=== PATIENT | female | born 1975 | race Caucasian/White ===

== ENCOUNTER 2020-10-18 18:05 | Emergency (ER) | payer BC ==
[~2020-10-18] VITALS: Ht 152.4 cm; Wt 88.6 kg
--- NOTE | 2020-10-18 18:30 | PHYS DOC ---
Past History Past Surgical History: General Adult HPI: HPI: ".... I got this Rt. lower abdomen pain... " Patient is a 45 year old female who presents with above hx and complaints of Rt.lower quadrant. No history of bad food intake. Reportedly normal stools. No recent travel. No significant ill contacts. No history immunosuppression. Patient has previous abdomen surgeries . Follows with Marley Graves. P atient has not eaten for almost entire day. Review of Systems: Review of Systems: Constitutional: Denies fever or chills Eyes: Denies change in visual acuity HENT: Denies nasal congestion or sore throat Respiratory: Denies cough or shortness of breath Cardiovascular: Denies chest pain or edema GI: Complaints of right lower abdominal pain, nausea,. Denies vomiting, bloody stools or diarrhea : Denies dysuria Musculoskeletal: Denies back pain or joint pain Integument: Denies rash Neurologic: Denies headache, focal weakness or sensory changes Endocrine: Denies polyuria or polydipsia Lymphatic: Denies swollen glands Psychiatric: Denies depression or anxiety Family History: Family History: Noncontributory to presentation. Current Medications: Current Meds: See nursing Allergies: Allergies: Penicillin codeine Physical Exam: PE: Constitutional: Moderate acute distress, non-toxic appearance. [] HENT: Normocephalic, atraumatic, bilateral external ears normal, oropharynx dry, no oral exudates, nose normal. [] Eyes: PERRLA, EOMI, conjunctiva normal, no discharge. [] Neck: Normal range of motion, no tenderness, supple, no stridor. [] Cardiovascular:Heart rate regular rhythm, no murmur [] Lungs & Thorax: Bilateral breath sounds apex on auscultation [] Abdomen: Bowel sounds normal, soft, right lower quadrant tenderness, no masses, no pulsatile masses. [] Old surgical scar. Rebound right lower quadrant. Skin: Warm, dry, no erythema, no rash. [] Back: No tenderness, no CVA tenderness. [] Extremities: No tenderness, no cyanosis, no clubbing, ROM intact, no edema. Pt. Heel tap Rt. true psoas sign.. No cording. Neurologic: Alert and oriented X 3, normal motor function, normal sensory function, no focal deficits noted. [] Psychologic: Affect anxious, judgement normal, mood normal. [] EKG: EKG: [] Radiology/Procedures: Radiology/Procedures: [][address] [address] IMAGING REPORT Signed PATIENT: WILVER PETERSON ACCOUNT: [id number] : 1975 LOCATION: ER AGE: 45 SEX: F EXAM STATUS: REG ER ORD. PHYSICIAN: GREGORY MESSINA MD REASON: OMNI 300,75ML IV.OMNI 240,30ML PO.Abdominal pain PROCEDURE: CT ABD PELV W/ORAL&IV CONTRAST EXAM: CT Abdomen and Pelvis with IV contrast CLINICAL HISTORY: Reason: OMNI 300,75ML IV.OMNI 240,30ML PO. Abdominal pain COMPARISON: none TECHNIQUE: Helical CT of the abdomen and pelvis was performed following the ad ministration of intravenous contrast. Axial, coronal and sagittal reformatted images were generated. PQRS compliance statement - One or more of the following individualized dose reduction techniques were utilized for this study: 1. Automated exposure control 2. Adjustment of the mA and/or kV according to patient size 3. Use of iterative reconstruction technique FINDINGS: Lower Chest: Patchy ground glass opacities lung bases likely atelectasis. Abdomen and Pelvis: Hepatic hypoattenuation, likely fatty liver. Region of focal fatty sparing in the gallbladder fossa. Gallbladder is normal. No biliary duct dilatation. Pancreas and spleen and adrenal glands are unremarkable. Symmetric nephrograms. No focal renal lesion. No hydronephrosis. No hydroureter. Moderately distended bladder is unremarkable. Appendix is thickened with periappendiceal infiltration, measuring 1.4 cm in thickness. Uterus and adnexa are unremarkable. No abdominal or pelvic ascites. No abdominal or pelvic lymphadenopathy. Aorta is normal in caliber. Bones: No aggressive osseous lesion is seen. Degenerative changes of the spine are seen. Mild disc height loss at L4-5 and L5-S1. IMPRESSION: 1. Acute appendicitis without evidence for perforation or associated loculated fluid collection. 2. Hepatic hypoattenuation, likely fatty liver. Findings discussed with Dr. Messina at 10/18/2020 10:42 PM. FOR INTERNAL CODING PURPOSES RESULT CODE: (C) Electronically signed by: Giovanni Grant MD (10/18/2020 10:43 PM) [facility] DICTATED AND SIGNED BY: GIOVANNI GRANT MD DATE: 10/18/202238 CC: GREGORY MESSINA MD; MARLEY GRAVES APRN ~MTH0 0 Heart Score: C/O Chest Pain: N/A Risk Factors: Risk Factors: DM, Current or recent (<one month) smoker, HTN, HLP, family history of CAD, obesity. Risk Scores: Score 0 - 3: 2.5% MACE over next 6 weeks - Discharge Home Score 4 - 6: 20.3% MACE over next 6 weeks - Admit for Clinical Observation Score 7 - 10: 72.7% MACE over next 6 weeks - Early Invasive Strategies Course & Med Decision Making: Course & Med Decision Making Pertinent Labs and Imaging studies reviewed. (See chart for details) Discussed presentation, testing and treatment plan with and Dr. Echols. Admit to [facility] and will consult on Acute Appendicitis Impression; 1. Abdomen pain 2. Leukocytosis 15.6 3. Acute appendicitis 4. Elevate AST49 ALT 112 [] Dragon Disclaimer: Bhavik Disclaimer: This electronic medical record was generated, in whole or in part, using a voice recognition dictation system. Departure Departure: Referrals: MARLEY GRAVES APRN (PCP) GREGORY MESSINA MD Oct 18, 2020 18:30
[2020-10-18] MEDS ORDERED: FAMOTIDINE 20 MG/2 ML VIAL IVP ONE (19:00)
[2020-10-18] MEDS ORDERED: ONDANSETRON PF 4 MG/2 ML VIAL. IVP ONE (19:00)
[2020-10-18] MEDS ORDERED: IV RINGERS SOLUTION,LACTATED 1,000 ML IV SCH (19:00)
[2020-10-18] MEDS ORDERED: FAMOTIDINE 20 MG/2 ML VIAL ONE (19:45)
[2020-10-18] MEDS ORDERED: ONDANSETRON PF 4 MG/2 ML VIAL. ONE (19:45)
[2020-10-18 20:01] LABS: BASO # 0.1 x10^3/uL (0.0-0.2); BASO % 0 % (0-3); EOS % 0 % (0-3); HEMATOCRIT 37.4 % (36.0-47.0); HEMOGLOBIN 12.1 g/dL (12.0-15.5); LYMPH % 6 % (24-48); MEAN CORPUSCULAR HEMOGLOBIN 27 pg (25-35); MEAN CORPUSCULAR HGB CONC 32 g/dL (31-37); MEAN CORPUSCULAR VOLUME 84 fL (79-100); MONO # 1.1 x10^3/uL (0.0-1.1); MONO % 7 % (0-9); NEUT # 13.4 x10^3uL (1.8-7.7); NEUT % 86 % (31-73); PLATELET COUNT 211 x10^3/uL (140-400); RED BLOOD COUNT 4.44 x10^6/uL (3.50-5.40); RED CELL DISTRIBUTION WIDTH 14.7 % (11.5-14.5); WHITE BLOOD COUNT 15.6 x10^3/uL (4.0-11.0)
[2020-10-18 20:02] LABS: BARBITURATES NEG (NEG); BENZODIAZEPINES NEG (NEG); CANNABINOIDS NEG (NEG); COCAINE NEG (NEG); METHADONE NEG (NEG); OPIATES NEG (NEG); PHENCYCLIDINE NEG (NEG)
[2020-10-18 20:04] LABS: CALCIUM 9.4 mg/dL (8.5-10.1); CREATININE 0.8 mg/dL (0.6-1.0); GFR 76.9
[2020-10-18 20:04] LABS: AMPHETAMINE/METHAMPHETAMINE NEG (NEG)
[2020-10-18 20:17] LABS: ALBUMIN 3.5 g/dL (3.4-5.0); DIRECT BILIRUBIN 0.2 mg/dL (0.0-0.2); TOTAL BILIRUBIN 0.8 mg/dL (0.2-1.0); TOTAL PROTEIN 6.8 g/dL (6.4-8.2)
[2020-10-18 20:24] LABS: BILIRUBIN,URINE NEG (NEG); CLARITY,URINE CLEAR; COLOR,URINE AMBER; GLUCOSE,URINE NEG (NEG)
[2020-10-18 20:25] LABS: NITRITE,URINE NEG (NEG); UROBILINOGEN,URINE 0.2 mg/dL (0.2 mg/dL)
[2020-10-18 20:26] LABS: BACTERIA,URINE 0 /HPF (0-FEW); RBC,URINE 0 /HPF (0-2); SQUAMOUS EPITHELIAL CELL,UR FEW /LPF; WBC,URINE 0 /HPF (0-4)
[2020-10-18] MEDS ORDERED: IOHEXOL 240 MG/ML 50ML VIAL. ONE (20:40)
[2020-10-18 20:45] LABS: % BANDS 1 % (0-9); % LYMPHS 4 % (24-48); % METAS 2 % (0-0); % MONOS 9 % (0-10); % MYELOS 1 % (0-0); % SEGS 83 % (35-66)
[2020-10-18 20:46] LABS: PLT ESTIMATE ADEQUATE (ADEQUATE)
[2020-10-18] MEDS ORDERED: CIPROFLOXACIN 400MG PREMIX 200 ML IV ONE (21:30)
[2020-10-18] MEDS ORDERED: MORPHINE SULFATE 10 MG/ML SYRINGE. SQ ONE (21:30)
[2020-10-18] MEDS ORDERED: IOHEXOL 300 MG/ML 75 ML VIAL. IV ONE (22:15)
--- NOTE | 2020-10-18 22:45 | RAD ---
EXAM: CT Abdomen and Pelvis with IV contrast CLINICAL HISTORY: Reason: OMNI 300,75ML IV.OMNI 240,30ML PO. Abdominal pain COMPARISON: none TECHNIQUE: Helical CT of the abdomen and pelvis was performed following the administration of intrave nous contrast. Axial, coronal and sagittal reformatted images were generated. PQRS compliance statement - One or more of the following individualized dose reduction techniques wer e utilized for this study: 1. Automated exposure control 2. Adjustment of the mA and/or kV according to patient size 3. Use of iterative reconstruction technique FINDINGS: Lower Chest: Patchy ground glass opacities lung bases likely atelectasis. Abdomen and Pelvis: Hepatic hypoattenuation, likely fatty liver. Region of focal fatty sparing in the gallbladder fossa. Gallbladder is normal. No biliary duct dilatation. Pancreas and spleen and adrenal glands are unremar kable. Symmetric nephrograms. No focal renal lesion. No hydronephrosis. No hydroureter. Moderately di stended bladder is unremarkable. Appendix is thickened with periappendiceal infiltration, measuring 1 .4 cm in thickness. Uterus and adnexa are unremarkable. No abdominal or pelvic ascites. No abdominal or pelvic lymphadenopathy. Aorta is normal in caliber. Bones: No aggressive osseous lesion is seen. Degenerative changes of the spine are seen. Mild disc height lo ss at L4-5 and L5-S1. IMPRESSION: 1. Acute appendicitis without evidence for perforation or associated loculated fluid collection. 2. Hepatic hypoattenuation, likely fatty liver. Findings discussed with Dr. Messina at 10/18/2020 10:42 PM. FOR INTERNAL CODING PURPOSES RESULT CODE: (C) Electronically signed by: Giovanni Meeks MD (10/18/2020 10:43 PM) [facility]
[2020-10-18 23:30] VITALS: BP 135/78
== END 2020-10-18 23:32 | disposition short-term general hospital (02) ==
LOC: ER 18:05
DX: K35.80 Unspecified acute appendicitis (principal); D72.829 Elevated white blood cell count, unspecified; R79.89 Other specified abnormal findings of blood chemistry; Z98.890 Other specified postprocedural states
CPT/HCPCS: 36415; 74177; 80048; 80076; 80307; 81001; 81025; 83690; 84484; 85007; 85025; 96361; 96365; 96367; 96372; 96375; 99285; J0744; J2270; J2405; J3490; J7120; Q9967